=== PATIENT | female | born 1940 | race Caucasian/White ===

== ENCOUNTER 2021-07-19 06:34 | Inpatient (IN) | payer MEDICARE ==
[~2021-07-19] VITALS: Ht 167.6 cm; Wt 84.0 kg
[2021-07-19 07:17] LABS: BASOPHILS % (AUTO) 0.7 % (0.0-5.0); EOSINOPHILS % (AUTO) 1.8 % (0.0-8.0); LYMPHOCYTES % (AUTO) 21.8 % (21.0-51.0); MEAN CORPUSCULAR HEMOGLOBIN 31.6 pg (27.0-33.0); MEAN CORPUSCULAR HGB CONC 32.9 g/dL (32.0-36.0); MEAN CORPUSCULAR VOLUME 96.1 fL (79-99); MONOCYTES % (AUTO) 13.1 % (3.0-13.0); NEUTROPHILS % (AUTO) 62.2 % (40.0-77.0); PLATELET COUNT (AUTO) 185 K/uL (130-400); RED BLOOD CELL COUNT(AUTO) 4.37 MIL/uL (4.00-5.50); RED CELL DISTRIBUTION WIDTH 13.3 % (11.0-15.5); WHITE BLOOD COUNT (AUTO) 5.4 K/uL (4.8-10.8)
[2021-07-19 07:18] LABS: APPEARANCE,URINE Clear (CLEAR); BILIRUBIN,URINE Negative (NEGATIVE); COLOR,URINE Yellow (YELLOW); GLUCOSE, URINE (UA) Negative (NEGATIVE); KETONES,URINE Negative (NEGATIVE); LEUKOCYTE ESTERASE ,URINE Trace (NEGATIVE); NITRATE,URINE Negative (NEGATIVE); OCCULT BLOOD,URINE Negative (NEGATIVE); PH,URINE 6.5 (5.0-8.0); PROTEIN,URINE Negative (NEGATIVE)
[2021-07-19] MEDS ORDERED: IPRATROPIUM/ALBUTEROL SULFATE 3 ML SOLUTION IH ONE (07:30)
[2021-07-19 07:36] LABS: BACTERIA,URINE Few /HPF (None Seen)
[2021-07-19] MEDS ORDERED: ONDANSETRON 4MG INJ ONE (07:41)
[2021-07-19 07:43] LABS: RBC,URINE 0-1 /HPF (0-1)
[2021-07-19] MEDS ORDERED: ACETAMINOPHEN 500 MG TABLET PO ONE (08:00)
[2021-07-19 08:03] LABS: ALBUMIN 3.6 g/dL (3.5-5.0); BILIRUBIN,TOTAL 0.4 mg/dL (0.2-1.0); TOTAL PROTEIN, SERUM 7.2 g/dL (6.0-8.3)
[2021-07-19] MEDS ORDERED: CEFTRIAXONE 1G VIAL IVP ONE (08:30)
[2021-07-19] MEDS ORDERED: SOLU-MEDROL 40MG VIAL IVP ONE (08:30)
[2021-07-19] MEDS ORDERED: MOME17SP12 NS (09:37)
[2021-07-19] MEDS ORDERED: SOLI10TA7 PO (09:37)
[2021-07-19] MEDS ORDERED: LINA145C PO (09:37)
[2021-07-19] MEDS ORDERED: APIX5TAB PO (09:37)
[2021-07-19] MEDS ORDERED: HC2530O TP (09:37)
[2021-07-19] MEDS ORDERED: GABA300C PO (09:37)
[2021-07-19] MEDS ORDERED: DEXL60CA3 PO (09:37)
[2021-07-19] MEDS ORDERED: VITAMIN D3 PO (09:37)
[2021-07-19] MEDS ORDERED: VITA1CAP PO (09:37)
[2021-07-19] MEDS ORDERED: LEVO112C4 PO (09:37)
[2021-07-19] MEDS ORDERED: CITA-108 PO (09:37)
[2021-07-19] MEDS ORDERED: FISH1CAP27 PO (09:37)
[2021-07-19] MEDS ORDERED: EZET-61 PO (09:37)
[2021-07-19] MEDS ORDERED: VENL150C4 PO (09:37)
[2021-07-19] MEDS ORDERED: METO-408 PO (09:37)
[2021-07-19] MEDS ORDERED: ALBU8.5H8 IH (09:37)
[2021-07-19] MEDS ORDERED: NITR4.9S5 TL (09:37)
[2021-07-19] MEDS ORDERED: GABA-529 PO (09:37)
[2021-07-19] MEDS: BUDESONIDE 0.5 MG/2 ML INH IH SCH ×2 (09:58→18:08)
[2021-07-19] MEDS: IPRATROPIUM 0.5 MG/2.5 ML INH IH SCH ×4 (09:58→22:07)
[2021-07-19 09:59] LABS: HEMOGLOBIN A1C 5.9 % (4.0-6.0)
[2021-07-19] MEDS ORDERED: KETOROLAC 15MG/ML VIAL (15MG/ML) IV ONE (10:00)
[2021-07-19] MEDS ORDERED: ONDANSETRON 4MG INJ IVP PRN (10:00)
[2021-07-19] MEDS: METOPROLOL SUCCINATE 12.5 MG PO SCH ×2 (10:00→22:00)
[2021-07-19] MEDS ORDERED: PANTOPRAZOLE 40 MG/VIAL IVP ONE (10:00)
[2021-07-19] MEDS ORDERED: ACETAMINOPHEN 500 MG TABLET PO PRN (10:00)
[2021-07-19] MEDS ORDERED: THIAMINE HCL 100 MG/ML 2ML VIAL IVP SCH (10:00)
[2021-07-19] MEDS ORDERED: ACETAMINOPHEN WITH CODEINE 1 TAB TAB PO PRN (10:00)
[2021-07-19 10:05] LABS: CRP QUANTITATIVE 25.2 mg/L (0.00-9.0)
[2021-07-19] MEDS: LACTATED RINGERS 1000ML 1,000 ML IV SCH (10:25)
[2021-07-19] MEDS: DOXYCYCLINE 100MG+NS 250ML IV SCH ×2 (10:25→22:19)
[2021-07-19] MEDS ORDERED: HYDROCORTISONE 2.5% CREAM 28G TP PRN (10:30)
[2021-07-19] MEDS ORDERED: Linaclotide (Linzess) 145 MCG PO PRN (10:30)
[2021-07-19] MEDS ORDERED: SOLU-MEDROL 40MG VIAL IVP SCH (13:00)
[2021-07-19] MEDS ORDERED: GUAIFENESIN-DM 200/20 MG 10 ML PO PRN (14:00)
[2021-07-19] MEDS: CEFTRIAXONE 1G VIAL IVP SCH (20:35)
[2021-07-19] MEDS: EZETIMIBE PO SCH (20:36)
[2021-07-19] MEDS: APIXABAN 5 MG TABLET PO SCH (20:36)
[2021-07-19] MEDS: SIMVASTATIN PO SCH (20:36)
[2021-07-19] MEDS: GABAPENTIN 300 MG CAPSULE PO SCH (20:36)
[2021-07-19] MEDS: CETIRIZINE HCL 5 MG TABLET PO SCH (20:36)
[2021-07-19] MEDS: SOLU-MEDROL 40MG VIAL IVP SCH (20:36)
[2021-07-19 21:00] VITALS: BP 132/76
[2021-07-20] VITALS: BP 157/61
[2021-07-20] MEDS: IPRATROPIUM 0.5 MG/2.5 ML INH IH SCH ×6 (02:02→22:36)
[2021-07-20] MEDS: LACTATED RINGERS 1000ML 1,000 ML IV SCH (03:21)
[2021-07-20 04:00] VITALS: BP 149/69
[2021-07-20 04:31] LABS: BASOPHILS % (AUTO) 0.1 % (0.0-5.0); HEMATOCRIT 37.3 % (36-48); LYMPHOCYTES % (AUTO) 16.6 % (21.0-51.0); MEAN CORPUSCULAR HEMOGLOBIN 32.1 pg (27.0-33.0); MEAN CORPUSCULAR HGB CONC 33.5 g/dL (32.0-36.0); MEAN CORPUSCULAR VOLUME 95.9 fL (79-99); MONOCYTES % (AUTO) 7.9 % (3.0-13.0); NEUTROPHILS % (AUTO) 74.8 % (40.0-77.0); PLATELET COUNT (AUTO) 185 K/uL (130-400); RED BLOOD CELL COUNT(AUTO) 3.89 MIL/uL (4.00-5.50); RED CELL DISTRIBUTION WIDTH 13.1 % (11.0-15.5); WHITE BLOOD COUNT (AUTO) 6.7 K/uL (4.8-10.8)
[2021-07-20 04:59] LABS: ALBUMIN 2.9 g/dL (3.5-5.0); BILIRUBIN,TOTAL 0.3 mg/dL (0.2-1.0); CREATININE 0.9 mg/dL (0.5-1.5); MAGNESIUM 1.9 mg/dL (1.80-2.40); PHOSPHORUS 3.1 mg/dL (2.5-4.9); POTASSIUM 4.6 mmol/L (3.5-5.1); TOTAL PROTEIN, SERUM 6.2 g/dL (6.0-8.3)
[2021-07-20] MEDS: BUDESONIDE 0.5 MG/2 ML INH IH SCH ×2 (06:26→18:43)
[2021-07-20] MEDS: LEVOTHYROXINE 112 MCG TABLET PO SCH (06:28)
[2021-07-20] MEDS: SOLU-MEDROL 40MG VIAL IVP SCH ×3 (06:28→20:35)
[2021-07-20] MEDS: VENLAFAXINE HCL XR 37.5 MG CAP PO SCH (08:28)
[2021-07-20] MEDS: FISH OIL 1000 MG/CAP PO SCH (08:28)
[2021-07-20] MEDS: APIXABAN 5 MG TABLET PO SCH ×2 (08:28→20:34)
[2021-07-20] MEDS: CITALOPRAM 20 MG TABLET PO SCH (08:29)
[2021-07-20] MEDS: Solifenacin Succinate 10 MG PO SCH (08:29)
[2021-07-20] MEDS: VITAMIN B COMPLEX 1 CAPSULE PO SCH (08:29)
[2021-07-20] MEDS: CEFTRIAXONE 1G VIAL IVP SCH ×2 (08:29→20:32)
[2021-07-20] MEDS: GABAPENTIN 100 MG CAPSULE PO SCH (08:30)
[2021-07-20 08:42] VITALS: BP 142/56
[2021-07-20] MEDS: DOXYCYCLINE 100MG+NS 250ML IV SCH ×2 (09:31→20:33)
[2021-07-20] MEDS: METOPROLOL SUCCINATE 12.5 MG PO SCH (09:36)
[2021-07-20] MEDS: ACETAMINOPHEN 500 MG TABLET PO PRN (09:58)
[2021-07-20] MEDS ORDERED: METOPROLOL TARTRATE 25 MG TAB PO SCH (10:00)
[2021-07-20] MEDS ORDERED: LACTULOSE 20 GM/30 ML UDCUP PO PRN (10:00)
[2021-07-20 12:30] VITALS: BP 154/77
[2021-07-20 16:41] VITALS: BP 149/71
[2021-07-20 20:00] VITALS: BP 157/69
[2021-07-20] MEDS: GABAPENTIN 300 MG CAPSULE PO SCH (20:33)
[2021-07-20] MEDS: CETIRIZINE HCL 5 MG TABLET PO SCH (20:34)
[2021-07-20] MEDS: EZETIMIBE PO SCH (20:35)
[2021-07-20] MEDS: SIMVASTATIN PO SCH (20:35)
[2021-07-21] VITALS (7 sets, daily range): BP systolic 134–167; BP diastolic 62–81
[2021-07-21] MEDS: IPRATROPIUM 0.5 MG/2.5 ML INH IH SCH ×5 (02:09→23:02)
[2021-07-21] MEDS: SOLU-MEDROL 40MG VIAL IVP SCH (05:22)
[2021-07-21] MEDS: LEVOTHYROXINE 112 MCG TABLET PO SCH (05:25)
[2021-07-21] MEDS: BUDESONIDE 0.5 MG/2 ML INH IH SCH ×2 (06:42→19:17)
[2021-07-21 07:26] LABS: BASOPHILS % (AUTO) 0.2 % (0.0-5.0); EOSINOPHILS % (AUTO) 0.1 % (0.0-8.0); HEMATOCRIT 38.9 % (36-48); MEAN CORPUSCULAR HEMOGLOBIN 31.2 pg (27.0-33.0); MEAN CORPUSCULAR HGB CONC 31.6 g/dL (32.0-36.0); MEAN CORPUSCULAR VOLUME 98.7 fL (79-99); MONOCYTES % (AUTO) 9.3 % (3.0-13.0); NEUTROPHILS % (AUTO) 73.9 % (40.0-77.0); PLATELET COUNT (AUTO) 188 K/uL (130-400); RED BLOOD CELL COUNT(AUTO) 3.94 MIL/uL (4.00-5.50); WHITE BLOOD COUNT (AUTO) 10.2 K/uL (4.8-10.8)
[2021-07-21 07:33] LABS: CREATININE 1.1 mg/dL (0.5-1.5); POTASSIUM 4.8 mmol/L (3.5-5.1)
[2021-07-21] MEDS: GABAPENTIN 100 MG CAPSULE PO SCH (08:22)
[2021-07-21] MEDS: CEFTRIAXONE 1G VIAL IVP SCH ×2 (08:22→20:49)
[2021-07-21] MEDS: FISH OIL 1000 MG/CAP PO SCH (08:22)
[2021-07-21] MEDS: VENLAFAXINE HCL XR 37.5 MG CAP PO SCH (08:23)
[2021-07-21] MEDS: ACETAMINOPHEN 500 MG TABLET PO PRN (08:23)
[2021-07-21] MEDS: PREDNISONE 20 MG TABLET PO SCH (08:23)
[2021-07-21] MEDS: APIXABAN 5 MG TABLET PO SCH ×2 (08:23→20:49)
[2021-07-21] MEDS: Solifenacin Succinate 10 MG PO SCH (08:24)
[2021-07-21] MEDS: CITALOPRAM 20 MG TABLET PO SCH (08:24)
[2021-07-21] MEDS: VITAMIN B COMPLEX 1 CAPSULE PO SCH (08:24)
[2021-07-21] MEDS: METOPROLOL TARTRATE 25 MG TAB PO SCH ×3 (09:13→20:52)
[2021-07-21] MEDS: DOXYCYCLINE 100MG+NS 250ML IV SCH (09:27)
[2021-07-21] MEDS: BENZOCAINE/MENTH/CETYLPYRD CL 1 EACH LOZENGE MM PRN ×2 (13:38→18:09)
[2021-07-21] MEDS: DOXYCYCLINE HYCLATE 100 MG TABLET PO SCH (20:49)
[2021-07-21] MEDS: CETIRIZINE HCL 5 MG TABLET PO SCH (20:50)
[2021-07-21] MEDS: GABAPENTIN 300 MG CAPSULE PO SCH (20:50)
[2021-07-21] MEDS: EZETIMIBE PO SCH (20:51)
[2021-07-21] MEDS: SIMVASTATIN PO SCH (20:51)
[2021-07-22 03:58] VITALS: BP 152/70
[2021-07-22] MEDS: LEVOTHYROXINE 112 MCG TABLET PO SCH (05:54)
[2021-07-22] MEDS: BENZOCAINE/MENTH/CETYLPYRD CL 1 EACH LOZENGE MM PRN ×3 (05:57→20:39)
[2021-07-22 06:06] LABS: BASOPHILS % (AUTO) 0.1 % (0.0-5.0); EOSINOPHILS % (AUTO) 0.1 % (0.0-8.0); HEMATOCRIT 36.1 % (36-48); LYMPHOCYTES % (AUTO) 33.7 % (21.0-51.0); MEAN CORPUSCULAR HEMOGLOBIN 33.9 pg (27.0-33.0); MEAN CORPUSCULAR HGB CONC 35.2 g/dL (32.0-36.0); MEAN CORPUSCULAR VOLUME 96.3 fL (79-99); MONOCYTES % (AUTO) 12.4 % (3.0-13.0); NEUTROPHILS % (AUTO) 53.4 % (40.0-77.0); PLATELET COUNT (AUTO) 236 K/uL (130-400); RED BLOOD CELL COUNT(AUTO) 3.75 MIL/uL (4.00-5.50); WHITE BLOOD COUNT (AUTO) 7.8 K/uL (4.8-10.8)
[2021-07-22 06:21] LABS: ALBUMIN 2.7 g/dL (3.5-5.0); BILIRUBIN,TOTAL 0.3 mg/dL (0.2-1.0); MAGNESIUM 1.9 mg/dL (1.80-2.40); POTASSIUM 4.1 mmol/L (3.5-5.1); TOTAL PROTEIN, SERUM 5.8 g/dL (6.0-8.3)
[2021-07-22] MEDS: BUDESONIDE 0.5 MG/2 ML INH IH SCH ×2 (07:30→18:05)
[2021-07-22] MEDS: IPRATROPIUM 0.5 MG/2.5 ML INH IH SCH ×4 (07:30→23:13)
[2021-07-22 08:00] VITALS: BP 157/64
[2021-07-22] MEDS: DOXYCYCLINE HYCLATE 100 MG TABLET PO SCH ×2 (08:16→20:38)
[2021-07-22] MEDS: FISH OIL 1000 MG/CAP PO SCH (08:16)
[2021-07-22] MEDS: METOPROLOL TARTRATE 25 MG TAB PO SCH ×2 (08:16→20:38)
[2021-07-22] MEDS: CEFTRIAXONE 1G VIAL IVP SCH ×2 (08:16→20:38)
[2021-07-22] MEDS: GABAPENTIN 100 MG CAPSULE PO SCH (08:16)
[2021-07-22] MEDS: VENLAFAXINE HCL XR 37.5 MG CAP PO SCH (08:17)
[2021-07-22] MEDS: PREDNISONE 20 MG TABLET PO SCH (08:17)
[2021-07-22] MEDS: VITAMIN B COMPLEX 1 CAPSULE PO SCH (08:17)
[2021-07-22] MEDS: APIXABAN 5 MG TABLET PO SCH ×2 (08:17→20:39)
[2021-07-22] MEDS: CITALOPRAM 20 MG TABLET PO SCH (08:17)
[2021-07-22] MEDS: Solifenacin Succinate 10 MG PO SCH (08:18)
[2021-07-22 12:00] VITALS: BP 163/93
[2021-07-22 16:00] VITALS: BP 170/75
[2021-07-22 20:09] VITALS: BP 157/84
[2021-07-22] MEDS: GABAPENTIN 300 MG CAPSULE PO SCH (20:39)
[2021-07-22] MEDS: CETIRIZINE HCL 5 MG TABLET PO SCH (20:39)
[2021-07-22] MEDS: SIMVASTATIN PO SCH (20:51)
[2021-07-22] MEDS: EZETIMIBE PO SCH (20:51)
[2021-07-23 00:16] VITALS: BP 148/74
[2021-07-23 05:06] VITALS: BP 161/76
[2021-07-23 05:20] LABS: CREATININE 1.1 mg/dL (0.5-1.5); POTASSIUM 3.9 mmol/L (3.5-5.1)
[2021-07-23] MEDS: BENZOCAINE/MENTH/CETYLPYRD CL 1 EACH LOZENGE MM PRN ×2 (05:37→13:45)
[2021-07-23] MEDS: LEVOTHYROXINE 112 MCG TABLET PO SCH (05:37)
[2021-07-23] MEDS: BUDESONIDE 0.5 MG/2 ML INH IH SCH (06:57)
[2021-07-23] MEDS: IPRATROPIUM 0.5 MG/2.5 ML INH IH SCH ×2 (06:57→11:27)
[2021-07-23 06:58] VITALS: BP 156/78
[2021-07-23] MEDS: CEFTRIAXONE 1G VIAL IVP SCH (08:41)
[2021-07-23] MEDS: VENLAFAXINE HCL XR 37.5 MG CAP PO SCH (08:41)
[2021-07-23] MEDS: DOXYCYCLINE HYCLATE 100 MG TABLET PO SCH (08:41)
[2021-07-23] MEDS: APIXABAN 5 MG TABLET PO SCH (08:41)
[2021-07-23] MEDS: PREDNISONE 20 MG TABLET PO SCH (08:41)
[2021-07-23] MEDS: FISH OIL 1000 MG/CAP PO SCH (08:41)
[2021-07-23] MEDS: CITALOPRAM 20 MG TABLET PO SCH (08:41)
[2021-07-23] MEDS: VITAMIN B COMPLEX 1 CAPSULE PO SCH (08:42)
[2021-07-23] MEDS: METOPROLOL TARTRATE 25 MG TAB PO SCH (08:42)
[2021-07-23] MEDS: GABAPENTIN 100 MG CAPSULE PO SCH (08:43)
[2021-07-23] MEDS: Solifenacin Succinate 10 MG PO SCH (08:43)
[2021-07-23 11:30] VITALS: BP 129/62
[2021-07-23 22:18] LABS: B.PARAPERTUSSIS DNA PCR Negative (Negative); B.PERTUSSIS DNA PCR Negative (Negative)
== END 2021-07-23 14:00 | DRG 189 ==
LOC: EDH 06:34 → EDHIP 09:34 → 2AH 20:39
PROVIDERS: ADMIT Hospitalist; ATTEND Hospitalist
DX: J96.01 Acute respiratory failure with hypoxia (principal); I48.20 Chronic atrial fibrillation, unspecified; G45.9 Transient cerebral ischemic attack, unspecified; J20.9 Acute bronchitis, unspecified; E86.0 Dehydration; I25.2 Old myocardial infarction; E03.9 Hypothyroidism, unspecified; F32.A Depression, unspecified; F41.9 Anxiety disorder, unspecified; G62.9 Polyneuropathy, unspecified; R54 Age-related physical debility; Z20.822 Contact with and (suspected) exposure to COVID-19; Z86.73 Personal history of transient ischemic attack (TIA), and cerebral infarction without residual deficits; Z95.5 Presence of coronary angioplasty implant and graft; Z90.710 Acquired absence of both cervix and uterus; Z79.01 Long term (current) use of anticoagulants; Z87.01 Personal history of pneumonia (recurrent)
CPT/HCPCS: 36415; 70450; 71045; 80048; 80053; 81001; 82550; 83036; 83605; 83735; 83880; 84100; 84145; 84443; 84484; 85025; 85651; 86140; 86738; 87040; 87449; 87635; 87798; 87804; 87880; 93005; 93306; 93356; 94640; 94664; 94760; 97039; 99291; C9113; C9803; G0378; J0696; J1885; J2405; J2920; J3411; J3490; J7120